=== PATIENT | male | born 1980 | race Caucasian/White ===

== ENCOUNTER 2017-01-13 20:11 | Emergency (ER) | payer MEDICAID ==
[2017-01-13 22:56] VITALS: BP 135/89
== END 2017-01-13 22:56 | disposition home or self-care (01) ==
LOC: ED 20:11
DX: S89.91XA Unspecified injury of right lower leg, initial encounter (principal); X50.1XXA Overexertion from prolonged static or awkward postures, initial encounter; Y93.67 Activity, basketball; Y92.89 Other specified places as the place of occurrence of the external cause; Y99.8 Other external cause status
CPT/HCPCS: J1885